=== PATIENT | female | born 1930 | race Two or more races ===

== ENCOUNTER 2017-01-25 16:31 | Inpatient (IN) | payer OTHER ==
[~2017-01-25] VITALS: Ht 152.4 cm; Wt 48.5 kg
--- NOTE | 2017-01-25 16:50 | NUR ---
PT BIB [facility] S/P SYNCOPAL EPISODE INCLUDING FACIAL TRAUMA. NOTED WITH BLEEDING UNAPPROXIMATED 2CM LAC AND SWELLING ABOVE R EYEBROWN AND R PERIORBITAL BRUISING. REPORTS L ARM PAIN, UNABLE TO PINPOINT WHERE PAIN IS FROM. NO VISIBLE DEFORMITIES. RESP EVEN UNLABORED. NO NEURO DEFICITS NOTED. ABLE TO MAKE NEEDS KNOW; SOMEWHAT CONFUSED. NAD NOTED. RESP EVEN UNLABORED. IN ER BED 11 ON MONITOR.
[2017-01-25 17:02] LABS: BASOPHILS % (AUTO) 0.8 % (0.0-2.0); EOSINOPHILS # (AUTO) 0.2 /CMM (0.0-0.7); EOSINOPHILS % (AUTO) 4.4 % (0.0-6.0); HEMATOCRIT 30 % (33-45); HEMOGLOBIN 10.4 g/dL (11.5-14.8); LYMPHOCYTES # (AUTO) 1.3 /CMM (0.8-4.8); LYMPHOCYTES % (AUTO) 23.8 % (20.0-44.0); MEAN CORPUSCULAR HEMOGLOBIN 31 PG (26.0-33.0); MEAN CORPUSCULAR HGB CONC 34 g/dl (31.0-36.0); MEAN CORPUSCULAR VOLUME 89 fL (82-100); MONOCYTES # (AUTO) 0.5 /CMM (0.1-1.30); NEUTROPHILS # (AUTO) 3.7 /CMM (1.8-8.9); PLATELET COUNT (AUTO) 248 /CMM (150-450); RDW COEFFICIENT OF VARIATION 13.9 (11.5-15.0); RED BLOOD CELL COUNT(AUTO) 3.38 MIL/uL (4.0-5.2); WHITE BLOOD COUNT (AUTO) 5.7 K/uL (4.3-11.0)
--- NOTE | 2017-01-25 17:06 | NUR ---
KAILEY SPECIAL MACHINE STITCHER AT BEDSIDE FOR SUTURE
[2017-01-25 17:10] LABS: CALCIUM, SERUM 8.5 mg/dL (8.5-10.1); CREATININE 0.7 mg/dL (0.6-1.3)
--- NOTE | 2017-01-25 17:11 | NUR ---
ORDER ENTERED FOR XRAY L ELBOW COMPLETE, L HUMERUS, L FOREARM PER VERBAL ORDER OF KAILEY BALL OPTICAL MANUFACTURING TECHNICIAN
[2017-01-25 17:15] LABS: INR 0.97 (0.87-1.13); PROTHROMBIN TIME 10.1 SECS (9.5-12.7)
[2017-01-25 17:18] LABS: TROPONIN I 0.019 ng/mL (0.00-0.056)
[2017-01-25] MEDS ORDERED: ACETAMINOPHEN 325 MG TABLET ONE (17:56)
--- NOTE | 2017-01-25 17:59 | NUR ---
CALLED NURSING SUP. FOR TELE BED
[2017-01-25] MEDS ORDERED: ACETAMINOPHEN 325 MG TABLET PO ONE (18:00)
[2017-01-25] MEDS ORDERED: ERGO50003 PO (18:37)
[2017-01-25] MEDS ORDERED: ASPI81TA2 PO (18:37)
--- NOTE | 2017-01-25 18:40 | NUR ---
DR.TIM TYLER STONE BLENDING LINE ATTENDANT
--- NOTE | 2017-01-25 19:04 | NUR ---
EPIC PAGED, DR.SIMONA Zaidi AUDIT CONSULTANT
--- NOTE | 2017-01-25 19:32 | NUR ---
PT TRANSPORTED TO RM 108 IN STABLE CONDITION
[2017-01-25 19:35] VITALS: BP 123/55
[2017-01-25 20:00] VITALS: BP 123/55
[2017-01-25] MEDS ORDERED: IV NS 0.9% 1,000 ML IV PRN (20:47)
[2017-01-25] MEDS ORDERED: ZOLPIDEM TARTRATE 5 MG TABLET PO PRN (21:00)
[2017-01-25] MEDS ORDERED: HYDROCODONE/APAP 5/325MG 1 EACH TABLET PO PRN (21:00)
[2017-01-25] MEDS ORDERED: ONDANSETRON HCL/PF 4 MG/2 ML VIAL IVP PRN (21:00)
[2017-01-25] MEDS ORDERED: MAG HYDROX/AL HYDROX/SIMETH 30 ML UDC PO PRN (21:00)
[2017-01-25] MEDS ORDERED: Z GUARD REMEDY 2 OZ OINT TP PRN (21:00)
[2017-01-25] MEDS ORDERED: MAGNESIUM HYDROXIDE 30 ML UDC PO PRN (21:00)
[2017-01-25] MEDS ORDERED: IV NS 0.9% 1,000 ML ONE (21:06)
[2017-01-25] MEDS ORDERED: IV SET PRIMARY PUMP SET 1 EA INFUS.SET MC ONE (21:07)
--- NOTE | 2017-01-25 22:30 | NUR ---
ADMISSION NOTE; A 86 YRS FEMALE ADMITTED TO UNIT @ 1935 WITH THE DX OF SYNCOPE, PT IS A/O X 3 , NO ANY DISTRESS , BREATHING EVEN AND UNLABORED ON ROOM AIR, SHOWING SR WITH 1st DEGREE AV BLOCK HR 64 ON TELE MONITOR , PERIPHERAL IV ON LW 20 G INTACT AND PATENT , DENIED ANY PAIN AT THIS TIME. ALL BELONGINGS CHECKED (MONEY KEPT IN THE WELDING PROCESS SPECIALIST SAFE ) ALL MEDICAL /FAMILY HX GIVEN BY PT, SKIN ASSESSMENT DONE, BED IN THE LOWEST/LOCKED POSITION , SAFETY MEASURES APPLIED , CONTINENT TO BOWEL/BLADDER , ASSIST WITH BED BROWN .CALL LIGHT WITHIN REACH, WILL CONTINUE TO MONITOR .
[2017-01-26] VITALS: BP 100/42
[2017-01-26] MEDS ORDERED: ACETAMINOPHEN 325 MG TABLET ONE (02:20)
[2017-01-26] MEDS: ACETAMINOPHEN 325 MG TABLET PO PRN ×2 (02:31→16:46)
[2017-01-26 04:00] VITALS: BP 101/41
[2017-01-26 06:34] LABS: BASOPHILS % (AUTO) 0.3 % (0.0-2.0); EOSINOPHILS # (AUTO) 0.2 /CMM (0.0-0.7); EOSINOPHILS % (AUTO) 2.9 % (0.0-6.0); HEMATOCRIT 29 % (33-45); HEMOGLOBIN 9.6 g/dL (11.5-14.8); LYMPHOCYTES # (AUTO) 1.1 /CMM (0.8-4.8); MEAN CORPUSCULAR HEMOGLOBIN 30 PG (26.0-33.0); MEAN CORPUSCULAR HGB CONC 33 g/dl (31.0-36.0); MEAN CORPUSCULAR VOLUME 89 fL (82-100); MONOCYTES # (AUTO) 0.6 /CMM (0.1-1.30); MONOCYTES % (AUTO) 9.9 % (2.0-12.0); NEUTROPHILS # (AUTO) 4.4 /CMM (1.8-8.9); NEUTROPHILS % (AUTO) 68.9 % (43.0-81.0); PLATELET COUNT (AUTO) 232 /CMM (150-450); RDW COEFFICIENT OF VARIATION 14.8 (11.5-15.0); RED BLOOD CELL COUNT(AUTO) 3.21 MIL/uL (4.0-5.2); WHITE BLOOD COUNT (AUTO) 6.3 K/uL (4.3-11.0)
[2017-01-26 06:45] LABS: THYROID STIMULATING HORMONE 2.148 uIU/mL (0.358-3.74)
--- NOTE | 2017-01-26 06:54 | NUR ---
RN EOS NOTE; PT REMAINED STABLE DURING THE SHIFT, REMAINED SR WITH 1st DEGREE HB ON TELE MONITOR . IVF TOLERATED WELL, PRN TYLENOL GIVEN FOR PAIN, TOLERATED WELL. KEPT CLEAN AND DRY ,ALL NEEDS ATTENDED PROMPTLY, CALL LIGHT WITHIN REACH. WILL ENDORSE TO NEXT SHIFT RN FOR CONTINUITY OF CARE.
[2017-01-26 07:09] LABS: CALCIUM, SERUM 8.1 mg/dL (8.5-10.1); CREATININE 0.7 mg/dL (0.6-1.3); MAGNESIUM 1.9 mg/dL (1.8-2.4); PHOSPHORUS 3.7 mg/dL (2.5-4.9); POTASSIUM 3.8 mmol/L (3.5-5.1)
[2017-01-26] MEDS ORDERED: PANTOPRAZOLE 40 MG TABLET.DR PO SCH (07:30)
--- NOTE | 2017-01-26 07:30 | NUR ---
initial note patient resting in bed a+o x3, verbalizes needs, not confused. 10/10 generalized pain, states does not want pain medication at this time. denies SOB on room air, denies dizziness. denies chest pain. skin warm and dry. L hand IV patent with prescribed fluids infusing. no complications at insertion site, dressing cdi. tele monitor reading SR with 1 degree AV block. discussed plan of care, provided all needs, diaper changed at this time. informed patient in stay in bed until PT eval, bed alarm on. call light in reach.
[2017-01-26 08:00] VITALS: BP 119/51
--- NOTE | 2017-01-26 08:09 | NUR ---
WOUND CARE CONSULT: PT PRESENTS WITH FACIAL INJURIES, BRUISING AND SWELLING TO RT FOREHEAD, EYE AND LIP. PT HAS SUTURED LACERATION TO RT EYEBROW. NO DRAINAGE NOTED. ALL SKIN PROTECTION MEASURES IN PLACE. DISCUSSED WITH NURSING STAFF. TAD SCORE IS 17. WILL SEE PRN. ANDERSON IN AGREEMENT WITH PLAN OF CARE. Addendum: 01/26/17 at 0811 by TATE FONSECA WNDNU Amended: Links added.
[2017-01-26] MEDS ORDERED: ASPIRIN 81 MG TAB.CHEW PO SCH (09:00)
[2017-01-26 10:38] LABS: THYROID STIMULATING HORMONE 2.069 uIU/mL (0.358-3.74)
[2017-01-26 12:00] VITALS: BP 106/37
[2017-01-26 16:00] VITALS: BP 103/45
--- NOTE | 2017-01-26 19:20 | NUR ---
closing note left patient in stable condition. breathing and LOC WNL. patient complained of IV pain, noted to be partially pulled out. removed IV. patient refused re-insertion. patient planned for discharge, gave report to [place] [facility] case manager, however no bed available yet, informed night nurse. no new injuries or falls this shift. assisted patient with cleaning/ diaper change and ROM frequently this shift. discussed plan of care. call light in reach
[2017-01-26 20:00] VITALS: BP 119/51
--- NOTE | 2017-01-26 21:30 | NUR ---
PT DISCHARGED BY AMBULANCE TO [facility] TELE FLOOR ROOM 5310 BED A IN STABLE CONDITION, . REPORT GIVEN TO ANDERSON AZEVEDO . REPORT GIVEN TO Crystal/Lesly GEORGE AT THE TIME OF DISCHARGE . ALL BELONGINGS(MONEY ) LIST CHECKED WITH EMT , ALL DISCHARGE INSTRUCTION VERBAL WELL PAPER WORK GIVEN TO THE PATIENT AND THE EMT. PT VERBALIZED UNDERSTANDING . Addendum: 01/26/17 at 2305 by KAVEH BABIN RN PLEASE CHECK ANOTHER NOTE.
--- NOTE | 2017-01-26 21:30 | NUR ---
PT DISCHARGED BY AMBULANCE TO [facility] TELE FLOOR ROOM 5310 BED A IN STABLE CONDITION, . REPORT GIVEN TO ANDERSON AZEVEDO . V/S WNL AT THE TIME OF DISCHARGE . ALL BELONGINGS(MONEY ) LIST CHECKED WITH EMT , ALL DISCHARGE INSTRUCTION VERBAL WELL PAPER WORK GIVEN TO THE PATIENT AND THE EMT. PT VERBALIZED UNDERSTANDING .
[2017-01-27] MEDS ORDERED: ERGOCALCIFEROL (VITAMIN D 2) 50,000 UNIT CAPSULE PO SCH (21:00)
== END 2017-01-26 23:11 | disposition short-term general hospital (02) | DRG 125 ==
LOC: ER 16:33 → TELE-TD 18:58 → TELE1 20:52
PROVIDERS: ADMIT Internal Medicine; ATTEND Internal Medicine
DX: S01.111A Laceration without foreign body of right eyelid and periocular area, initial encounter (principal); R55 Syncope and collapse; M19.90 Unspecified osteoarthritis, unspecified site; W19.XXXA Unspecified fall, initial encounter; Y92.9 Unspecified place or not applicable; D64.9 Anemia, unspecified; M21.379 Foot drop, unspecified foot; R53.1 Weakness; M26.69 Other specified disorders of temporomandibular joint; M43.10 Spondylolisthesis, site unspecified; M46.90 Unspecified inflammatory spondylopathy, site unspecified
CPT/HCPCS: 36415; 70450-TC; 70486-TC; 71010-TC; 72125-TC; 73060-TC; 73070-TC; 73090-TC; 73120-TC; 80048-TC; 80061-TC; 82306; 82728-TC; 83540-TC; 83735-TC; 84100-TC; 84439-TC; 84443-TC; 84484-TC; 85025-TC; 85730-TC; 87081-TC; 93307-TC; 97001-TC; A4606; A6402; J7030; Z7610